=== PATIENT | female | born 1955 | race Caucasian/White ===

== ENCOUNTER 2019-11-29 11:07 | Emergency (ER) | payer SELFPAY ==
--- NOTE | 2019-11-29 11:07 | NUR ---
COVID SCREENING PERFORMED IN TENT. PT IS REQUESTING TO BE TESTED. STATES SHE HAS A COUGH AND FEVER X1 WEEK. DENIES ANY TRAVEL. SPOKE WITH DR. PICKERING. PT O2 SAT 94% ON ROOM AIR. WENT OUT TO BRING PATIENT INTO ED AND PT REFUSED TO COME INSIDE. PT STATES "I DON'T WANT TO BE AROUND PEOPLE." I ADVISED PT THAT SHE COULD WAIT IN THE TENT TO BE SEEN AND PT STATED "I THOUGHT THIS WAS A DRIVE THRU I DON'T WANT TO GO INSIDE." PT STATES "OH NO I'M GONNA GO."
--- NOTE | 2019-11-29 11:10 | NUR ---
PATIENT LEFT WITHOUT BEING SEEN BY DR. PICKERING. NO FURTHER CARE PROVIDED FOR PATIENT.
== END 2019-11-29 11:10 | disposition left against medical advice (07) ==
LOC: MED 11:07
DX: R05 Cough (principal); R50.9 Fever, unspecified; Z53.21 Procedure and treatment not carried out due to patient leaving prior to being seen by health care provider